=== PATIENT | female | born 1985 | race Caucasian/White ===

== ENCOUNTER 2024-01-07 13:30 | Emergency (ER) | payer MEDICAID, OTHER ==
[~2024-01-07] VITALS: Ht 170.2 cm; Wt 72.6 kg
[2024-01-07 13:57] VITALS: BP 101/75; TEMP 98.6
[2024-01-07] MEDS ORDERED: CIPR7.5D9 RIGHT EAR (14:22)
[2024-01-07 14:28] VITALS: O2SAT 96
== END 2024-01-07 14:29 | disposition home or self-care (01) ==
LOC: ER 13:33
DX: H60.91 Unspecified otitis externa, right ear (principal)

== ENCOUNTER 2024-05-02 15:07 | Emergency (ER) | payer MEDICAID ==
[~2024-05-02] VITALS: Ht 170.2 cm; Wt 77.1 kg
[~2024-05-02 15:07] MED LIST: CIPR7.5D9 RIGHT EAR
[2024-05-02 15:29] VITALS: BP 125/65; TEMP 97.9; O2SAT 100
[2024-05-02] MEDS ORDERED: IBUPROFEN 600 MG TABLET ONE (16:08)
[2024-05-02] MEDS: IBUPROFEN 600 MG TABLET PO ONE (16:10)
[2024-05-02] MEDS ORDERED: IBUP-1490 PO (16:16)
[2024-05-02] MEDS ORDERED: OXYC-128 PO (16:16)
== END 2024-05-02 16:24 | disposition home or self-care (01) ==
LOC: ER 15:07
DX: S42.255A Nondisplaced fracture of greater tuberosity of left humerus, initial encounter for closed fracture (principal); M25.512 Pain in left shoulder; X50.1XXA Overexertion from prolonged static or awkward postures, initial encounter; Y93.89 Activity, other specified; Y92.89 Other specified places as the place of occurrence of the external cause; Y99.8 Other external cause status
CPT/HCPCS: 73030-TC